=== PATIENT | female | born 1960 | race Caucasian/White ===

== ENCOUNTER → 2018-03-31 | Day surgery (SDC) | payer OTHER ==
[~2018-03-31] VITALS: Ht 170.2 cm; Wt 77.1 kg
--- NOTE | 2018-03-31 12:17 | Operative Report ---
Operative/Inv Procedure Report Surgery Date: 03/31/18 Name of Procedure: Removal osteoma frontal skull bone Pre-Operative Diagnosis: Osteoma Post-Operative Diagnosis: Same Estimated Blood Loss: scant Surgeon/Investment Officer: Rian Cisneros MD Anesthesia: laryngeal mask airway Operative/Procedure Note Note: The patient was counseled in regards to the procedure the alternatives the risks and expected outcomes as relates to request for surgical intervention to treat symptomatic osteoma. We talked about infection bleeding pain numbness recurrence definite visible scarring possibly unsightly or symptomatic and numbness of the scalp. Once agreed informed consent was signed. She was taken to the operating placed supine on the table. Venodyne boots were placed laryngeal mask anesthesia was established intravenous antibiotics given. The face was prepped and draped in usual sterile fashion. Transverse incision was made in a forehead righted and the subcutaneous tissue was opened transversely. The muscle was opened longitudinally and bluntly . Periosteum was opened longitudinally to avoid injury to any surrounding nerves. A pineapple bur was then used to smooth the area with a portion sent for pathologic analysis. The wound was irrigated made hemostatic and closed in multiple layers. End dictation
== END ==
LOC: STS 02:41
DX: D16.4 Benign neoplasm of bones of skull and face (principal); E06.3 Autoimmune thyroiditis
CPT/HCPCS: J0131; J0690; J2250